=== PATIENT | female | born 1990 | race Caucasian/White ===

== ENCOUNTER 2025-03-06 08:35 | Emergency (ER) | payer SELFPAY ==
[2025-03-06 08:36] VITALS: BP 126/81
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
== END 2025-03-06 10:01 | disposition home or self-care (01) ==
LOC: EMR 08:35
PROVIDERS: EMERGENCY PHYSICIAN Emergency Medicine; FAMILY PHYSICIAN Family Medicine
DX: M79.602 Pain in left arm (principal); M79.605 Pain in left leg; M54.2 Cervicalgia; V89.2XXA Person injured in unspecified motor-vehicle accident, traffic, initial encounter; Y92.410 Unspecified street and highway as the place of occurrence of the external cause
CPT/HCPCS: 99282